=== PATIENT | female | born 1950 | race Two or more races ===

== ENCOUNTER → 2017-01-21 | Outpatient (CLI) | payer BC ==
--- NOTE | 2017-01-23 10:10 | RAD ---
DATE: January 21, 2017 EXAM: DIGITAL SCREEN BILAT W/CAD HISTORY: Routine screening. COMPARISON: Priors back to December 30, 2011. TECHNIQUE: 2D digital CC and MLO views of each breast were obtained. This study was interpreted with the benefit of Computerized Aided Detection (CAD). FINDINGS: The breast parenchyma is heterogeneously dense, category C, which may obscure small masses. There is no worrisome mass or area of architectural distortion. There are a few benign-appearing calcifications. There are no suspicious microcalcifications. IMPRESSION: Stable mammogram with benign findings. BI-RADS CATEGORY: 2 BENIGN FINDING RECOMMENDED FOLLOW-UP: 12M 12 MONTH FOLLOW-UP PQRS compliance statement: Patient information was entered into a reminder system with a target due date for the next mammogram. Mammography is a sensitive method for finding small breast cancers, but it does not detect them all and is not a substitute for careful clinical examination. A negative mammogram does not negate a clinically suspicious finding and should not result in delay in biopsying a clinically suspicious abnormality. "Our facility is accredited by the [employer] Mammography [employer]."
== END | disposition home or self-care (01) ==
LOC: MAMMO 09:41
PROVIDERS: ATTEND Family Medicine
DX: Z12.31 Encounter for screening mammogram for malignant neoplasm of breast (principal)
CPT/HCPCS: G0202; 77067

== ENCOUNTER → 2018-01-05 | Outpatient (CLI) | payer MEDICARE ==
--- NOTE | 2018-01-08 08:47 | RAD ---
DATE: 01/05/2018 EXAM: MAMMO DICK SCREENING BILATERAL HISTORY: Benign breast biopsy in 2008. COMPARISON: 01/21/2017 and 09/13/2014 This study was interpreted with the benefit of Computerized Aided Detection (CAD ). Breast Density: HETERO The breast parenchyma is heterogenously dense, which could reduce sensitivity of mammography. Breast parenchyma level C. FINDINGS: Biopsy clip marker is present involving the posterior upper left breast. No suspicious calcification clusters or distortion. No dominant masses in the interval. IMPRESSION: BI-RADS CATEGORY: 2 BENIGN FINDING(S) RECOMMENDED FOLLOW-UP: PQRS compliance statement: Patient information was entered into a reminder system with a target due date in 1 year for the next mammogram. Mammography is a sensitive method for finding small breast cancers, but it does not detect them all and is not a substitute for careful clinical examination. A negative mammogram does not negate a clinically suspicious finding and should not result in delay in biopsying a clinically suspicious abnormality. "Our facility is accredited by the [employer] Mammography [employer]." KIMID
== END | disposition home or self-care (01) ==
LOC: MAMMO 12:26
PROVIDERS: ATTEND Family Medicine
DX: Z12.31 Encounter for screening mammogram for malignant neoplasm of breast (principal)
CPT/HCPCS: 77063; 77067

== ENCOUNTER → 2018-01-26 | Day surgery (SDC) | payer MEDICARE ==
[~2018-01-26] MED LIST: AMLO5TAB7 PO; ATOR20TA58 PO; GLIM2TAB2 PO; IV RINGERS,LACTATED 1000ML 1,000 ML IV SCH; LIDOCAINE 1% PF 2 ML VIAL. ID PRN; LOSA1TAB22 PO; METF10007 PO; MIDAZOLAM HCL/PF 2 MG/2 ML VIAL. IV PRN; PIOG30TA41 PO; PROPOFOL 40 ML IV ONE; fentaNYL PF VIAL 100 MCG/2 ML VIAL IV PRN
[2018-01-26 09:59] VITALS: BP 143/69
--- NOTE | 2018-01-26 23:12 | CONS ---
DATE OF CONSULTATION: 01/26/2018 REFERRING PHYSICIAN: David Mayorga M.D. REASON FOR CONSULTATION: Colorectal screening. HISTORY OF PRESENT ILLNESS: A 68-year-old female with past medical history significant for hypertension, hyperlipidemia and diabetes; is seen for screening colon exam. Bowel habits are regular without diarrhea or constipation. There has been no melena and/or hematochezia. Weight and appetite are stable. No family history of colon polyps or colon cancer is noted. She apparently had a colonoscopy approximately 15 years ago, which was unrevealing at that time. PAST MEDICAL HISTORY: Diabetes, hypertension, hyperlipidemia, status post eye surgery, knee surgery and finger surgery. ALLERGIES: To PENICILLIN. MEDICATIONS: Include amlodipine, atorvastatin, glimepiride, losartan, metformin and Actos. SOCIAL HISTORY: Does not drink or smoke. FAMILY HISTORY: Noncontributory. REVIEW OF SYSTEMS: Unobtainable due to language barrier. PHYSICAL EXAMINATION: GENERAL: A well-nourished and well-developed female. VITAL SIGNS: Temperature is 97.7, pulse 84 and respirations 20. HEENT: Reveals normocephalic and atraumatic head. Pupils and extraocular movements not tested. Sclerae anicteric. NECK: Supple. LUNGS: Clear. CARDIOVASCULAR: Reveals an S1 and S2 without S3, S4 or appreciable murmur. ABDOMEN: Reveals a soft abdomen. Normal bowel sounds without appreciable hepatosplenomegaly. EXTREMITIES: Reveals no cyanosis, clubbing or edema. IMPRESSION AND PLAN: Colorectal screening is warranted at this time. Risks and benefits of the procedure including risk of hemorrhage and perforation during the operation have been discussed the patient's granddaughter and the patient and she is willing to proceed. KVNG FRITZ MD DR: SON/vignesh JOB#: [id number] / [id number]
--- NOTE | 2018-01-29 15:07 | PATHOLOGY ---
[facility] Accession Number: [id number] . 01 Material submitted: . ASCENDING COLON POLYPS . 01 Clinical history: . Screening . 02 Diagnosis: Colon biopsies, ascending colon polyps: - Tubular adenomas, with focal serrated features. (JPM:plant culture manager; 01/29/2018) MBR/01/29/2018 . 02 Comment: There is no high-grade dysplasia or evidence of malignancy. (JPM:plant culture manager; 01/29/2018) . 02 Electronically signed: . Agustín Todd MD, Pathologist NPI- [id number] . 01 Gross description: . Received in formalin labeled "Ross, Saritha, ascending colon polyps," are 3 segments of ball soft tissue measuring 0.6 x 0.4 x 0.3 cm in aggregate dimensions and ranging from 0.3 to 0.6 cm in maximum dimension. The specimen is submitted entirely in cassette A1. (TSD; 01/26/2018) TOB/TOB . 02 Pathologist provided ICD-10: D12.2 . 02 CPT . 246764 Specimen Comment: A courtesy copy of this report has been sent to Specimen Comment: [phone], . Specimen Comment: Report sent to Specimen Comment: A duplicate report has been generated due to demographic updates. Performed at: 01 [facility] [address], [place] [id number] MD Brayden Dunn MD Phone: [phone] Performed at: 02 [facility] [address], [place] [id number] MD Agustín Todd MD Phone: [phone]
== END | disposition home or self-care (01) ==
LOC: ENDOS 07:38
PROVIDERS: ATTEND Internal Medicine Gastroenterology
DX: Z12.11 Encounter for screening for malignant neoplasm of colon (principal); D12.2 Benign neoplasm of ascending colon; K64.0 First degree hemorrhoids; K57.30 Diverticulosis of large intestine without perforation or abscess without bleeding; I10 Essential (primary) hypertension; E78.5 Hyperlipidemia, unspecified; E11.9 Type 2 diabetes mellitus without complications; Z98.890 Other specified postprocedural states; Z88.0 Allergy status to penicillin; Z79.84 Long term (current) use of oral hypoglycemic drugs; Z79.899 Other long term (current) drug therapy
CPT/HCPCS: 45385; 88305; J2704; 45380

== ENCOUNTER → 2019-03-09 | Outpatient (CLI) | payer MEDICARE ==
[2018-01-26 09:59] VITALS: BP 143/69
[~2019-03-09] MED LIST changes: +AMLO5TAB10 PO; -AMLO5TAB7 PO; -GLIM2TAB2 PO; +GLIM2TAB3 PO; -IV RINGERS,LACTATED 1000ML 1,000 ML IV SCH; -LIDOCAINE 1% PF 2 ML VIAL. ID PRN; -MIDAZOLAM HCL/PF 2 MG/2 ML VIAL. IV PRN; -PROPOFOL 40 ML IV ONE; -fentaNYL PF VIAL 100 MCG/2 ML VIAL IV PRN
--- NOTE | 2019-03-11 09:53 | RAD ---
DATE: March 09, 2019 EXAM: MAMMO DICK SCREENING BILATERAL HISTORY: Screening study. COMPARISON: 2014 and 2017 This study was interpreted with the benefit of Computerized Aided Detection (CAD). FINDINGS: Breast Density: HETERO The breast parenchyma is heterogenously dense, which could reduce sensitivity of mammography. Breast parenchyma level C.. There are no dominant suspicious masses, suspicious microcalcifications or evidence of architectural distortion. IMPRESSION: No mammographic indicators for malignancy BI-RADS CATEGORY: 1 NEGATIVE RECOMMENDED FOLLOW-UP: 12M 12 MONTH FOLLOW-UP PQRS compliance statement: Patient information was entered into a reminder system with a target due date March 10, 2020 for the next mammogram. Mammography is a sensitive method for finding small breast cancers, but it does not detect them all and is not a substitute for careful clinical examination. A negative mammogram does not negate a clinically suspicious finding and should not result in delay in biopsying a clinically suspicious abnormality. "Our facility is accredited by the [employer] Mammography [employer]." The patient's breast density may affect the ability of mammography to detect breast cancer. There are 4 categories of breast density, A, B, C and D. Breast density A means that most of the breast tissue is replaced with adipose tissue and therefore is not dense. Breast density B means that the breast tissue is mildly dense and scattered. Breast density C means that the breast tissue is heterogeneously dense. Breast density D means that the breast tissue is very dense. Breast densities especially C and D may decrease the sensitivity of mammography to detect breast cancer. Therefore, the patient may benefit from 3-D breast mammography (3D breast tomography) as a part of their screening mammogram. Insurance may or may not pay for this additional imaging. The patient's breast density based on today's mammogram is category C.
== END | disposition home or self-care (01) ==
LOC: MAMMO 10:00
PROVIDERS: ATTEND Family Medicine
DX: Z12.31 Encounter for screening mammogram for malignant neoplasm of breast (principal)
CPT/HCPCS: 77063; 77067

== ENCOUNTER → 2019-09-06 | Outpatient (CLI) | payer MEDICARE ==
[2018-01-26 09:59] VITALS: BP 143/69
[~2019-09-06] MED LIST changes: -GLIM2TAB3 PO; +GLIM2TAB7 PO
--- NOTE | 2019-09-06 11:27 | RAD ---
Examination: Ultrasound abdomen complete HISTORY: History of right-sided abdominal pain COMPARISON: None available FINDINGS: The liver length measures 14.4 cm. Mild increased echogenicity identified in the liver likely hepatic steatosis. The common bile duct measures 1.9 mm in diameter. The gallbladder wall thickness measures 2 mm. The right kidney measures 10.7 x 3.7 x 4.6 cm. The left kidney measures 9.9 x 3.9 x 5.4 cm. The pancreas is poorly visualized. The spleen measures 9.7 cm in length. The visualized aorta, IVC are within normal limits of dimension. IMPRESSION: Mild increased echogenicity identified in the liver likely hepatic steatosis. Electronically signed by: Clyde Man MD (09/06/2019 11:24 AM) [id number]
== END | disposition home or self-care (01) ==
LOC: US 09:47
PROVIDERS: ATTEND Family Medicine
DX: R10.9 Unspecified abdominal pain (principal)
CPT/HCPCS: 76700

== ENCOUNTER → 2020-10-10 | Outpatient (CLI) | payer MEDICARE ==
[2018-01-26 09:59] VITALS: BP 143/69
[~2020-10-10] MED LIST changes: +AMLO-186 PO; -AMLO5TAB10 PO
--- NOTE | 2020-10-13 16:04 | RAD ---
MG BILAT SCREEN+DICK 10/10/2020 8:08 AM INDICATION: Asymptomatic screening mammogram. COMPARISON: 03/09/2019, 01/05/2018 TECHNIQUE: 3D tomosynthesis was performed in CC and MLO projections. 2D views were obtained from the 3D data. CAD was utilized as needed. FINDINGS: Breast density: Category C: The breats are heterogeneously dense, which may obscure small masses. Right breast: There is an asymmetry in the outer right breast at middle depth measuring 3.5 mm, appro ximately 3.5 cm from the nipple. This finding suspected be in the upper right breast at middle depth. Spot compression CC and MLO views of the right breast are recommended as well as possible ultrasound . Left breast: There are no suspicious microcalcifications, masses or areas of architectural distortion . Left mammogram is compared to prior examinations appears unchanged. IMPRESSION: 1. Incomplete right mammogram. Additional imaging is recommended. 2. Negative left mammogram. BI-RADS category: 0; Incomplete Recommendations: Recommend additional imaging for which the patient will need to be called back. Electronically signed by: Glendy Wang MD (10/13/2020 4:02 PM) [id number]
== END ==
LOC: MAMMO 08:07
PROVIDERS: ATTEND Family Medicine
DX: Z12.31 Encounter for screening mammogram for malignant neoplasm of breast (principal)
CPT/HCPCS: 77063; 77067

== ENCOUNTER → 2020-10-29 | Outpatient (CLI) | payer MEDICARE ==
[2018-01-26 09:59] VITALS: BP 143/69
--- NOTE | 2020-10-29 18:30 | RAD ---
DATE: 10/29/2020 EXAM: DIGITAL DIAGNOSTIC RT HISTORY: Recall from screening mammogram for right breast focal asymmetry COMPARISON: 10/10/2020 This study was interpreted with the benefit of Computerized Aided Detection (CAD). Breast Density: HETERO The breast parenchyma is heterogenously dense, which could reduce sensitivity of mammography. Breast parenchyma level C. FINDINGS: The nodule in the right breast slightly lateral to the nipple at middle depth on CC view resolves with spot compression compatible with superimposed fibroglandular tissue. IMPRESSION: No evidence of malignancy. BI-RADS CATEGORY: 1 NEGATIVE RECOMMENDED FOLLOW-UP: 12M 12 MONTH FOLLOW-UP PQRS compliance statement: Patient information was entered into a reminder system with a target due date for the next mammogram. Mammography is a sensitive method for finding small breast cancers, but it does not detect them all and is not a substitute for careful clinical examination. A negative mammogram does not negate a clinically suspicious finding and should not result in delay in biopsying a clinically suspicious abnormality. "Our facility is accredited by the [employer] Mammography Program."
== END ==
LOC: MAMMO 12:51
PROVIDERS: ATTEND Family Medicine
DX: N63.10 Unspecified lump in the right breast, unspecified quadrant (principal); R92.8 Other abnormal and inconclusive findings on diagnostic imaging of breast
CPT/HCPCS: 77065

== ENCOUNTER 2021-07-02 18:51 | Emergency (ER) | payer MEDICARE ==
[~2021-07-02] VITALS: Ht 165.1 cm; Wt 71.4 kg
[2021-07-02 22:10] VITALS: BP 155/72
--- NOTE | 2021-07-02 22:51 | PHYS DOC ---
General Adult EDM: Chief Complaint: RIB PAIN HPI: HPI: Patient is a 71 year old female presents with the chief complaint of right rib pain. Patient reports she had fallen 2 weeks ago. States pain related to fall or possibly when patient was helped up. Patient's pain is in her left chest. Area is tender to palpation states she has minimal pain when taking deep breaths. Patient denies any associated shortness of breath. No mention of any other injuries. Review of Systems: Review of Systems: Constitutional: Denies fever or chills. [] Eyes: Denies change in visual acuity. [] HENT: Denies nasal congestion or sore throat. [] Respiratory: Denies cough or shortness of breath. [] Cardiovascular: Denies chest pain or edema. [] GI: Denies abdominal pain, nausea, vomiting, bloody stools or diarrhea. [] : Denies dysuria. [] Musculoskeletal: Denies back pain or joint pain. [Positive chest wall pain] Integument: Denies rash. [] Neurologic: Denies headache, focal weakness or sensory changes. [] Endocrine: Denies polyuria or polydipsia. [] Lymphatic: Denies swollen glands. [] Psychiatric: Denies depression or anxiety. [] Heart Score: C/O Chest Pain: N/A Risk Factors: Risk Factors: DM, Current or recent (<one month) smoker, HTN, HLP, family history of CAD, obesity. Risk Scores: Score 0 - 3: 2.5% MACE over next 6 weeks - Discharge Home Score 4 - 6: 20.3% MACE over next 6 weeks - Admit for Clinical Observation Score 7 - 10: 72.7% MACE over next 6 weeks - Early Invasive Strategies Allergies: Allergies: Allergies Coded Allergies Type Severity Reaction Last Updated Verified Penicillins Allergy Severe Anaphylaxis 01/26/18 Yes Physical Exam: PE: Constitutional: Well developed, well nourished, no acute distress, non-toxic appearance. [] HENT: Normocephalic, atraumatic, bilateral external ears normal, oropharynx moist, no oral exudates, nose normal. [] Eyes: PERRLA, EOMI, conjunctiva normal, no discharge. [] Neck: Normal range of motion, no tenderness, supple, no stridor. [] Cardiovascular:Heart rate regular rhythm, no murmur [] Lungs & Thorax: Bilateral breath sounds clear to auscultation [] Abdomen: Bowel sounds normal, soft, no tenderness, no masses, no pulsatile masses. [] Skin: Warm, dry, no erythema, no rash. [] Back: No tenderness, no CVA tenderness. [] Extremities: No tenderness, no cyanosis, no clubbing, ROM intact, no edema. [] Neurologic: Alert and oriented X 3, normal motor function, normal sensory function, no focal deficits noted. [] Psychologic: Affect normal, judgement normal, mood normal. [] EKG: EKG: [] Radiology/Procedures: Radiology/Procedures: [] Impression: Wet read ribs x-ray No acute fractures or dislocation or pneumo visualized Course & Med Decision Making: Course & Med Decision Making Pertinent Labs and Imaging studies reviewed. (See chart for details) [] Dragon Disclaimer: Dragon Disclaimer: This electronic medical record was generated, in whole or in part, using a voice recognition dictation system. Departure Departure Impression: Primary Impression: Contusion of rib on right side Disposition: 01 HOME / SELF CARE / HOMELESS Referrals: DESTINEY PERERA MD (PCP) Patient Instructions: Rib Contusion Additional Instructions: Continue NSAID. Rx Ultram Use incentive spirometry at least 4 times an hour Scripts Tramadol Hcl (ULTRAM) 50 Mg Tablet 1 TAB PO PRN Q6HRS PRN for pain MDD 4 Tablet(s) for 7 Days, #28 TAB 0 Refills Prov: MILAN MCKEON I DO 07/02/21 MILAN MCKEON I DO Jul 02, 2021 22:51
[2021-07-02] MEDS ORDERED: TRAM-48 PO (22:58)
--- NOTE | 2021-07-02 23:08 | RAD ---
XR RIBS MIN 3 VIEWS RT W/PA CHEST History: Pain. Comparison: None. Technique: PA chest and 3 views of the right ribs. Findings: The lungs are adequately and symmectrically inflated. No airspace consolidation, pleural effusion or pneumothorax. The cardiomediastinal silhoutte and pulmonary vasculature are within normal limits. Lev oconvex curvature of the lumbar spine. No rib fractures identified. Impression: 1. No rib fracture or sequela identified. Electronically signed by: Sathish Lai MD (07/02/2021 11:05 PM) [facility]
[2021-07-02] MEDS ORDERED: traMADol 50 MG TABLET PO ONE (23:30)
== END 2021-07-02 23:35 | disposition home or self-care (01) ==
LOC: ER 18:51
DX: S20.211A Contusion of right front wall of thorax, initial encounter (principal); Z88.0 Allergy status to penicillin; W18.39XA Other fall on same level, initial encounter; Y93.89 Activity, other specified; Y92.89 Other specified places as the place of occurrence of the external cause; Y99.8 Other external cause status
CPT/HCPCS: 71101; 99283